=== PATIENT | female | born 1990 ===

== ENCOUNTER → 2019-11-27 14:39 | Outpatient (BNVA) | payer MEDICAID, SELFPAY | PROVIDERS: PCP Family Medicine; Visit Provider Obstetrics & Gynecology | DX: Z01.89 Encounter for other specified special examinations (principal) | CPT/HCPCS: 84315 ==

== ENCOUNTER → 2019-12-11 14:43 | Outpatient (BNVA) | payer MEDICAID, SELFPAY | PROVIDERS: PCP Family Medicine; Visit Provider Obstetrics & Gynecology | DX: Z34.83 Encounter for supervision of other normal pregnancy, third trimester (principal) | CPT/HCPCS: 84315; 85027 ==

== ENCOUNTER 2019-12-20 14:49 | Outpatient (CLI) | payer MEDICAID, SELFPAY ==
[2019-12-20] VITALS (8 sets, daily range): BP systolic 97–104; BP diastolic 60–68; PULSE 79–91; BMI 29.7
[2019-12-20 15:37] LABS: Actim Prom Negative
== END 2019-12-20 16:52 | disposition home or self-care (01) ==
LOC: OPOB 14:55 → OBGYN 16:51 → OPOB 12-21 13:30
PROVIDERS: Absent Provider Obstetrics & Gynecology; PCP Family Medicine; Visit Provider Obstetrics & Gynecology
DX: O26.899 Other specified pregnancy related conditions, unspecified trimester (principal); Z3A.00 Weeks of gestation of pregnancy not specified; R10.9 Unspecified abdominal pain
CPT/HCPCS: 59025; 83986; 84112; 99211

== ENCOUNTER → 2019-12-25 14:55 | Outpatient (BNVA) | payer MEDICAID, SELFPAY | PROVIDERS: PCP Family Medicine; Visit Provider Obstetrics & Gynecology | DX: Z34.90 Encounter for supervision of normal pregnancy, unspecified, unspecified trimester (principal) | CPT/HCPCS: 84315; 87081 ==

== ENCOUNTER → 2020-01-01 14:54 | Outpatient (BNVA) | payer MEDICAID, SELFPAY | PROVIDERS: PCP Family Medicine; Visit Provider Obstetrics & Gynecology | DX: Z01.89 Encounter for other specified special examinations (principal) | CPT/HCPCS: 84315 ==

== ENCOUNTER 2020-01-05 16:43 | Outpatient (CLI) | payer MEDICAID, SELFPAY ==
[2020-01-05 17:18] VITALS: BP 112/62; PULSE 92; RESP 18; TEMP 36.7
[2020-01-05 17:49] VITALS: BMI 29.3
[2020-01-05 18:24] VITALS: BP 109/63; PULSE 84
[2020-01-05 18:30] VITALS: BP 109/63; PULSE 82; RESP 16; TEMP 36.7
== END 2020-01-05 18:30 | disposition home or self-care (01) ==
LOC: OPOB 16:57 → OBGYN 17:28 → OPOB 01-06 14:45
PROVIDERS: PCP Family Medicine; Visit Provider Obstetrics & Gynecology Female Pelvic Medicine and Reconstructive Surgery
DX: O26.899 Other specified pregnancy related conditions, unspecified trimester (principal); Z3A.00 Weeks of gestation of pregnancy not specified; R10.9 Unspecified abdominal pain
CPT/HCPCS: 59025; 99211

== ENCOUNTER 2020-01-07 03:42 | Outpatient (CLI) | payer MEDICAID, SELFPAY ==
[2020-01-07] VITALS (19 sets, daily range): BP systolic 0–120; BP diastolic 0–70; PULSE 63–91; RESP 17–18; TEMP 36.6; BMI 29.8
== END 2020-01-07 08:03 | disposition home or self-care (01) ==
LOC: OPOB 03:47 → OBGYN 07:51 → OPOB 10:33
PROVIDERS: PCP Family Medicine; Visit Provider Obstetrics & Gynecology
DX: O26.899 Other specified pregnancy related conditions, unspecified trimester (principal); Z3A.00 Weeks of gestation of pregnancy not specified; R10.9 Unspecified abdominal pain
CPT/HCPCS: 99211; A9270

== ENCOUNTER → 2020-01-08 14:41 | Outpatient (BNVA) | payer SELFPAY | PROVIDERS: PCP Family Medicine; Visit Provider Obstetrics & Gynecology | DX: Z01.89 Encounter for other specified special examinations (principal) | CPT/HCPCS: 84315 ==

== ENCOUNTER 2020-01-14 01:53 | Inpatient (IN) | payer MEDICAID, SELFPAY ==
[2020-01-13 23:50] VITALS: RESP 18; TEMP 36.6
[2020-01-14] VITALS (100 sets, daily range): BP systolic 0–132; BP diastolic 0–77; PULSE 55–98; RESP 16–18; TEMP 36.5–37.2; O2SAT 97–100; BMI 30.5
[2020-01-14 01:03] LABS: Nitrazine Paper, PH Negative
[2020-01-14 01:52] LABS: Basophils % 0.2 %; Eosinophils # 0.1 10^3/uL (0.0-0.8); Eosinophils % 1.1 %; Hematocrit 32.8 % (37.0-47.0); Hemoglobin 10.9 g/dL (11.5-15.3); Lymphocytes # 2.3 10^3/uL (0.8-4.8); Mean Corpuscular HGB Conc 33.2 g/dL (30.0-36.0); Mean Corpuscular Hemoglobin 29.1 pg (28.0-34.0); Mean Corpuscular Volume 87.7 fL (81-99); Mean Platelet Volume 10.5 fL (7.4-10.4); Monocytes # 0.9 10^3/uL (0.2-0.9); Monocytes % 8.9 %; Neutrophils # 6.6 10^3/uL (1.8-7.7); Neutrophils % 66.3 %; Nucleated Red Blood Cells % 0 %; Platelet Count 283 10^3/cmm (130-400); Red Blood Count 3.74 10^6/uL (4.1-5.3); Red Cell Distribution Width 13.5 % (12.1-15.1)
[2020-01-14 02:10] LABS: Amphetamines Screen Urine Negative (Negative); Barbiturates Screen Urine Negative (Negative); Benzodiazepines Screen Urine Negative (Negative); Cocaine Screen Urine Negative (Negative); Opiate Screen Urine Negative (Negative); PCP Screen Urine Negative (Negative); THC Screen Urine Negative (Negative)
[2020-01-14] MEDS: dextrose 5%-lactated ringers 1,000 ML 125 ML IV ×2 (02:26→11:18)
[2020-01-14] MEDS: lactated ringers 1,000 ML 999 ML IV (03:50)
--- NOTE | 2020-01-14 05:19 | ANES.PREANE2 ---
Pre-Anesthetic Assessment Pre-Anesthetic Assessment: Height/Weight: Height 1.63 m Weight 80.739 kg Temp Pulse Resp BP Pulse Ox 97.7 F 73 18 107/64 98 01/14/20 03:52 01/14/20 05:17 01/14/20 03:52 01/14/20 05:17 01/14/20 05:17 Preop Diagnosis: labor pain Proposed Procedure: labor epidural Was Beta Autumn taken within 24 hours: N/A Social: Social History: Tobacco and No alcohol Exam: Pre-Anes Outpt Exam: alert, oriented x 3 and clear to auscultation bilaterally Airway: Submandibular: WNL Cervical ROM: WNL MP: 1 Pulmonary: Pulmonary: None reported Comments: bronchitis CV/HEM: CV/HEM: None reported : : None reported Hepatic: Hepatic: None reported GI: GI: GERD Metabolic: Metabolic: None reported Musc/skel: Musc/skel: None reported Neuropsych: Neuropsych: None reported Anesthetic Plan: ASA status: 2 Anesthesia: Anesthesia Evaluation and Eval. for regional block Risk of > 500 ml blood loss (7ml/kg in children): No Meds/Allergies Current Medications: Current Medications Generic Name Dose Route Start Last Admin Trade Name Freq PRN Reason Stop Dose Admin Dextrose/Lactated Ringer's 1,000 mls @ 125 m ls/hr 01/14/20 01:45 01/14/20 05:00 Dextrose 5%-Lact ated Ringers IV 125 mls/hr .Q8H PETER Infusion Lactated Ringer's 1,000 mls @ 999 m ls/hr 01/14/20 03:43 01/14/20 04:59 Lactated Ringers IV Infused .Q1H1M PRN Infusion ANESTHESIA Ropivacaine 200 mg in 100 mls @ 6 mls/hr 01/14/20 03:45 01/14/20 05:11 Naropin Premix EPIDURAL 13 mls/hr .[id number] PETER Administration PFSH Anesthesia Female Reproductive History: : 3 Data Anesthesia CBC & Chem 7: 01/14/20 01:20 Other Labs: Laboratory Results - last 48 hr 01/14/20 01/14/20 00:20 01:20 WBC 10.0 RBC 3.74 L Hgb 10.9 L Hct 32.8 L MCV 87.7 MCH 29.1 MCHC 33.2 RDW 13.5 Plt Count 283 MPV 10.5 H Neut % (Auto) 66.3 Lymph % (Auto) 23.0 Benzie % (Auto) 8.9 Eos % (Auto) 1.1 Baso % (Auto) 0.2 Neut # (Auto) 6.6 Lymph # (Auto) 2.3 Benzie # (Auto) 0.9 Eos # (Auto) 0.1 Baso # (Auto) 0.0 Nucleated RBC % (auto) 0 Nucleated RBCs # 0.0 Urine Opiates Screen Negative Ur Barbiturates Screen Negative Ur Phencyclidine Scrn Negative Ur Amphetamines Screen Negative U Benzodiazepines Scrn Negative Urine Cocaine Screen Negative U Marijuana (THC) Screen Negative Cardiac Studies: No Data to Display
--- NOTE | 2020-01-14 05:22 | ANES.PROC ---
Anesthesia Procedures Procedure/Date: 01/14/20 Epidural: Time Out Performed: Yes Consents Signed: Procedure Consent Consent: requested by attending/covering physician, from patient, risks and benefits reviewed and patient agrees to proceed Lumbar Level: L3-L4 Epidural position: sitting Epidural procedure: sterile prep of area, 1% lidocaine to numb the area (3 cc ), 18 g needle (L3-L4), negative for paresthesia passed, neg for paresthesia, test dose given (3 cc), 0.2% Ropivacaine bolus ml (8 cc), placed PCEA, no systemic response, sterile dressing applied, L.U.D. no apparent complications and 0.2% Ropiavacaine @ mls/hr (13 mls/hr 5 cc Q 10 min X 3) Additional Comments: MANDIE at 9 cm, catheter threaded to 14 cm at skin. VSS see OBIX
[2020-01-14] MEDS: oxytocin 30 UNIT/500 ML BAG IV (11:19)
[2020-01-14] MEDS: ondansetron 2 mg/ML SDV 2 mL 4 MG IVP (13:05)
--- NOTE | 2020-01-14 13:44 | PM.DELIVERY ---
 Delivery Note: Date of delivery: January 14, 2020 Pre-delivery diagnoses: 1. Term at 39-5/7 weeks gestaton, 2. History of genital herpes, 3. Tobacco use during Post-delivery diagnoses: 1. Term at 39-5/7 weeks gestaton, 2. History of genital herpes, 3. Tobacco use during , 4. Viable female Procedure: Spontaneous vaginal delivery Op report anesthesia: Epidural Delivering Physician: Dr. Dwight Rose Estimated blood loss (mL): 100 Pre-Delivery Course: Patient is a 29-year-old white female 3, para 2-0-0-2 with an LMP of 04/19/2019 (guess) and an EDC of 01/16/2020 based on a 21-week ultrasound, which placed her at 39-4/7 weeks gestation. She presented to labor and delivery at 23:30 on 01/13/2020 with a complaint of contractions. She is stated that she had been having contractions about every 2 minutes since about 8 PM. On arrival she was noted to be 50% effaced and 2 cm dilated at a -3 station and was beulah about every 3 minutes. She was monitored over the next couple hours, but made no significant change. However during that time she would have episodes of recurrent late decelerations which would resolve. During that time the baby would still be reactive. Due to the late decelerations, decision was made to keep her with plan to promote delivery. However, she started progressing slowly on her own and as a result had epidural placed during the night. By 06:50 she was 5 cm dilated and 60% effaced. By around 11:00 she was still 5 cm dilated and decision was made to start Pitocin augmentation. At 12:10, she had spontaneous rupture of membranes and was found to be an anterior lip. By 12:30, she was completely dilated. During the labor course, the baby continued to have episodes of late decelerations as well as recurrent variable decelerations. However, reactivity was maintained during the process. Delivery: Patient started pushing at 12: 45. She was noted with pushing she would bring the baby down but in between pushes the baby would go back up to about a 0 station. She eventually brought the baby down to a +3 station and at this point it appeared that the baby was most likely in an OP presentation. Manual rotation was performed and the baby had been rotated to left occiput transverse when she had her next contraction and with pushing at that point the baby finished rotating around to occiput anterior and rapidly delivered. Baby delivered at 13:11 as a spontaneous vaginal delivery of an occiput anterior female infant over an intact perineum under epidural anesthesia. Following delivery of the 's head one loop of nuchal cord was noted. However, the baby was rapidly delivering and delivered through the loop of cord. The right shoulder was anterior. The baby was placed on the mother's abdomen where it had started crying. Nose and mouth were suctioned with bulb suction. Cord was clamped and was then cut by a family member. Baby was left in the care of the waiting nurses. Cord blood was obtained. Pitocin bolus was started. Placenta delivered intact by simple expression at 13:15. The cervix and vagina were palpated and noted to be intact. The labia were inspected and noted to be intact except for superficial abrasions which required no repair. FINDINGS 1. Viable female infant weighing 7 lbs 4 oz (3300 g) with a length of 20 inches and Apgars of 8 at 1 minute and 9 at 5 minutes. 2. Normal-appearing placenta with central cord insertion. 3. Three-vessel cord with one loop of nuchal cord noted. Post-Delivery Status: Mother and infant were left to recover in satisfactory condition. Coding Level of Care Code Acute Patient Assistant for Manny Kerns
[2020-01-14] MEDS: lanolin oint 7 gm 1 APPLIC TOPICAL (15:49)
[2020-01-14] MEDS: TRAMadol 50 mg Tablet PO (16:17)
[2020-01-14] MEDS: acyclovir 400 mg Tablet PO (19:35)
[2020-01-14] MEDS: docusate sodium 100 mg Capsule PO (19:35)
[2020-01-15 03:53] VITALS: BP 109/74; PULSE 74; RESP 16; TEMP 36.8; O2SAT 98
[2020-01-15] MEDS: TRAMadol 50 mg Tablet PO (04:44)
[2020-01-15 05:56] LABS: Hematocrit 33.8 % (37.0-47.0); Hemoglobin 11.1 g/dL (11.5-15.3); Mean Corpuscular HGB Conc 32.8 g/dL (30.0-36.0); Mean Corpuscular Hemoglobin 30.1 pg (28.0-34.0); Mean Corpuscular Volume 91.6 fL (81-99); Mean Platelet Volume 10.3 fL (7.4-10.4); Platelet Count 248 10^3/cmm (130-400); Red Blood Count 3.69 10^6/uL (4.1-5.3); Red Cell Distribution Width 13.8 % (12.1-15.1); White Blood Count 13.5 10^3/uL (4.0-10.0)
[2020-01-15 07:18] VITALS: BP 100/65; PULSE 78; RESP 15
--- NOTE | 2020-01-15 07:36 | P.DS_ITS ---
Discharge Providers Date of Admission: 01/14/20 01:53 Date of Discharge: January 15, 2020 Attending Provider at Admission: Dwight Rose MD Attending Provider at Discharge: Dwight Rose MD Primary Care Provider: Serjio Wallace DO Diagnoses at Discharge Discharge Diagnosis (1) Term delivered: Status: Acute (2) Genital herpes during , delivered, current hospitalization: Status: Acute Reason for Visit Reason for Visit: Reason For Visit: labor Hospital Course Hospital Course: Patient is a 29-year-old white female 3, para 2-0-0-2 with an LMP of 04/19/2019 (guess) and an EDC of 01/16/2020 based on a 21-week ultrasound, which placed her at 39-4/7 weeks gestation at the time of admission. She presented to labor and delivery at 2330 on 01/13/2020 with complaint of contractions. She was beulah about every 2 minutes and these had started about 8 PM. On arrival she was 2 cm dilated, 50% effaced, and -3 station and was beulah about every 3 minutes. She initially made no significant cervical foreign exchange trader the first couple hours, but had runs of repetitive late decelerations which would then go away. She had remained having a reactive tracing however during these times. Since she was 39 weeks with the late decelerations, decision was made to go ahead and keep her and proceed towards delivery. During the night she progressed slowly on her own. She became more uncomfortable and had epidural placed. By 11:00 in the morning she was 5 cm dilated and decision was made to start her on Pitocin augmentation. However, she rapidly progressed after that and by 12:10 she was an anterior lip with spontaneous rupture membranes at that time with clear fluid present. She progressed to complete dilation by 12:30. She started pushing at 1245 and delivered at 1311 as a spontaneous vaginal delivery of an occiput anterior female over an intact perineum under epidural anesthesia. The baby weighed 7 pounds 4 ounces (3300 g) with a length of 20 inches and Apgars of 8 at 1 minute 9 at 5 minutes. She had superficial abrasions which required no repair. Mother and did well following delivery. DAY 1 Patient was without complaints. She reported tolerating a regular diet without nausea or vomiting. She denied any lightheadedness or dizziness with ambulation. She reported her pain was well controlled. She denied any shortness of breath or chest pains. She denied problems with urination. She stated her bleeding had slowed. She is breast-feeding. She would like to be released today. PHYSICAL EXAM See below. PLAN Discharged home. Discharge instructions discussed with patient. Patient to follow-up in the office in 6 weeks for exam. Patient has decided to have an interval sterilization which will be scheduled through our office. Physical Exam Const: COMMON NORMALS: no apparent distress, average body habitus, alert and well nourished GENERAL APPEARANCE: well developed ORIENTATION/CONSCIO USNESS: Yes oriented to person, Yes oriented to place and Yes oriented to time Resp: COMMON NORMALS: normal respiratory effort and clear to auscultation bilaterally AUSCULTATION: clear to auscultation bilaterally Cardio: COMMON NORMALS: regular rate, regular rhythm, no gallops, no murmurs and no rub RATE: regular rate RHYTHM: regular rhythm GI: COMMON NORMALS: soft to palpation, non-tender, no hepatosplenomegaly and no masses (Except for nontender firm uterus approximately 2 fingerbreadths below the umbilicus.) AUSCULTATION: Yes normoactive bowel sounds PALPATION: Yes soft, Yes no hepatosplenomegaly and No hernia : EXTERNAL FEMALE EXAM: No hernia Neuro: SENSORIUM/ORIENTATION: Yes alert, Yes oriented to person, Yes oriented to place and Yes oriented to time Psych: COMMON NORMALS: affect normal MOOD & AFFECT: Yes euthymic mood Urinary Catheter Management^: Torres: Cath Placed During This Visit: yes Urethral Indwelling: No Reason for Continuing Indwelling Catheter: Other Urinary Catheter Date of Insertion: 01/14/20 Urinary Catheter Time of Insertion: 05:35 Discharge Data Data Completed and Pending: Labs from last 24 hours 01/15/20 04:59 WBC 13.5 H RBC 3.69 L Hgb 11.1 L Hct 33.8 L MCV 91.6 MCH 30.1 MCHC 32.8 RDW 13.8 Plt Count 248 MPV 10.3 Vitals: Last Vital Signs Temp 98.2 F 01/15/20 03:53 Pulse 74 01/15/20 03:53 Resp 16 01/15/20 03:53 BP 109/74 01/15/20 03:53 Pulse Ox 98 01/15/20 03:53 Discharge Plan Discharge Patient Disposition: Home, Self-Care Condition: Stable Prescriptions: New tramadol 50 mg Tablet 50 - 100 mg PO Q4H PRN (Reason: Moderate To Severe Pain) Qty: 10 RF: 0 ibuprofen 800 mg Tablet 800 mg PO TID PRN (Reason: pain) Qty: 40 RF: 0 Continued Vitamin 27 mg iron- 800 mcg Tablet 1 tab PO DAILY RF: 0 acyclovir 400 mg Tablet 400 mg PO BID RF: 0 Discharge Orders: Discharge Order (Routine); Ordered 01/15/20 Ordered By: Dwight Rose Referrals: Dwight Rose MD [Physician] - 6 Weeks ( exam) Discharge Diet: Regular Discharge Activity: Resume usual activity Patient Instructions: OB Vaginal Deliveries - [facility] Discharge Attestations Time Spent in Discharge Care*: less than 30 min Quality Metrics Clinical Quality Measures During this hospital stay, did patient experience: None Coding Level of Care Code Acute Stock Selector for g Fwd Exam Detailed Diagnoses Term delivered O80 Genital herpes during , delivered, current hospitalization O98.32; A60.09
[2020-01-15] MEDS: docusate sodium 100 mg Capsule PO (09:26)
[2020-01-15] MEDS: prenatal vitamin Capsule 1 CAP PO (09:27)
[2020-01-15] MEDS: acyclovir 400 mg Tablet PO (09:27)
--- NOTE | 2020-01-15 10:29 | ANE.PACU2 ---
 Inpatient post-anesthesia follow up: Airway intact: Yes Vital signs: Temperature 98.2 F Pulse Rate 78 Respiratory Rate 15 Blood Pressure 100/65 Pulse Oximetry 98 Oxygen Delivery Me thod Room Air Oxygen Flow Rate Fraction of Inspir ed Oxygen Hydration adequate: No Pain level: 2 Mental status: Baseline Additional Comments: No, headaches, lower extremity weakness, or difficult urinating. No signs of infection
[2020-01-15 10:43] VITALS: BP 107/66; PULSE 85; RESP 16; TEMP 36.7
[2020-01-15 16:39] VITALS: BP 97/63; PULSE 57; RESP 16; TEMP 36.4
== END 2020-01-15 17:21 | disposition home or self-care (01) | DRG 806 ==
LOC: OBGYN 09:13 → OPOB 01-16 07:33
PROVIDERS: Admitting Provider Obstetrics & Gynecology; PCP Family Medicine; Visit Provider Obstetrics & Gynecology
DX: O76 Abnormality in fetal heart rate and rhythm complicating labor and delivery (principal); O98.32 Other infections with a predominantly sexual mode of transmission complicating childbirth; Z37.0 Single live birth; Z3A.39 39 weeks gestation of pregnancy; A60.00 Herpesviral infection of urogenital system, unspecified; O99.334 Smoking (tobacco) complicating childbirth; F17.210 Nicotine dependence, cigarettes, uncomplicated; O69.81X0 Labor and delivery complicated by cord around neck, without compression, not applicable or unspecified
CPT/HCPCS: 12345; 36415; 51702; 59409; 80307; 83986; 85025; 85027; 96374; 96375; 98960; 99211; J2405; J2795; J3010; J8499

== ENCOUNTER 2020-02-16 08:00 | Day surgery (SDC) | payer MEDICAID, SELFPAY ==
--- NOTE | 2020-02-16 11:13 | ANES.PREANE2 ---
Pre-Anesthetic Assessment Pre-Anesthetic Assessment: Height/Weight: Height 1.63 m Weight 71.668 kg Preop Diagnosis: Undesired fertility Proposed Procedure: Operation Date: 02/24/20 07:00 Proposed Procedures p Zaina Bucio,Removal of Tubes Sterilization 11986 Z30.2(Not Applicable) - Dwight Rose MD Familial anesthetic complications: None Social: Social History: Tobacco Packs per day: 0.5 ppd Exam: Pre-Anes Outpt Exam: alert, oriented x 3, clear to auscultation bilaterally and regular rate & rhythm Airway: Cervical ROM: WNL MP: 1 Dentition: Chipped Pulmonary: Comments: bronchitis occassionally CV/HEM: CV/HEM: None reported : : None reported Hepatic: Hepatic: None reported GI: GI: None reported Metabolic: Metabolic: None reported Musc/skel: Musc/skel: Scoliosis Comments: herniated disc, sciatica (R) Neuropsych: Neuropsych: Neuropathy and None reported Anesthetic Plan: ASA status: 2 Anesthesia: General Risk of > 500 ml blood loss (7ml/kg in children): No PFSH Anesthesia PFSH: Family History (Updated 02/16/20 @ 08:41 by Jeir Douglass LPN) Mother Hypertension Hypercholesteremia Thyroid disease Grandmother Diabetes maternal Thyroid disease maternal Ovarian cancer maternal Family/Other Diabetes maternal aunt Ovarian cancer maternal Social History (Updated 02/16/20 @ 09:19 by Jeri Douglass LPN) Smoking and tobacco status: current every day smoker cigarettes Packs smoked per day: 0.5 Years cigarettes smoked: 11 Alcohol intake: never Substance/Drug Use: never Female Reproductive History: Date of last menstrual period: 02/12/20 Data Anesthesia Cardiac Studies: No Data to Display
== END 2020-02-16 09:00 | disposition home or self-care (01) ==
LOC: OPS 07-13 13:15
PROVIDERS: Visit Provider Obstetrics & Gynecology
DX: Z01.818 Encounter for other preprocedural examination (principal); F17.210 Nicotine dependence, cigarettes, uncomplicated
CPT/HCPCS: 81025

== ENCOUNTER 2020-04-25 11:10 | Emergency (ER) | payer MEDICAID, SELFPAY ==
[2020-04-25 11:13] VITALS: BP 122/72; PULSE 97; RESP 18; TEMP 36.6; O2SAT 100; BMI 24.0
--- NOTE | 2020-04-25 11:22 | W.ED.SKABFB ---
HPI - Skin/Abscess/Foreign Bdy General: Chief complaint: Skin/Abscess/Foreign Body Stated complaint: sunburn Time Seen by Provider: 04/25/20 11:13 History of Present Illness: HPI narrative: Patient is a 49-year-old female who comes to the ED with a sunburn. Patient states that yesterday she [place] on the river and applied sunscreen multiple times but still got sunburn. Sunburn on right and left upper and lower extremities along with the shoulders. Patient states the right and left thighs and right and left shoulders are the most painful areas of her sunburn. Patient has been applying aloe and took an oatmeal bath this morning. Associated symptoms: Deny chills, fever(s), nausea or vomiting Review of Systems Const: Denies: fever(s), chills or fatigue Eyes: Denies: change in vision or eye discomfort ENMT: Denies: throat pain, odynophagia, nasal discharge or nasal congestion Card: Denies: chest pain, palpitations, edema, swelling of feet/ankles, dyspnea on exertion or orthopnea Resp: Denies: dyspnea, productive cough or non-productive cough GI: Denies: abdominal pain, nausea, vomiting, diarrhea, constipation or hematochezia : Denies: flank pain, dysuria or hematuria Musc: Denies: neck pain, back pain or extremity swelling Skin/Breast: Reports: erythema (sunburn on R and L upper and lower extremities and shoulders); Denies: rash or new lesions Neuro: Denies: headache(s), numbness in extremities or weakness in extremities PFS ED PFSH: Medical History Blood type O+ Genital herpes (~2014) Diagnosed. Has been intermittently on daily suppression. History of depression Had depression following first . Surgical History No pertinent past surgical history Family History Mother Hypertension Hypercholesteremia Thyroid disease Grandmother Diabetes maternal Thyroid disease maternal Ovarian cancer maternal Family/Other Diabetes maternal aunt Ovarian cancer maternal Social History Smoking and tobacco status: current every day smoker cigarettes Packs smoked per day: 0.5 Years cigarettes smoked: 11 Alcohol intake: never Female Reproductive History: Date of last menstrual period: 02/12/20 Physical Exam Const: COMMON NORMALS: patient oriented x3 HENMT: COMMON NORMALS: normocephalic HEAD & SCALP: normocephalic MOUTH: Normal oral and palatal mucosa present THROAT: posterior oropharynx normal and uvula midline Neck/C-Spine: COMMON NORMALS: supple GENERAL: Yes normal visual inspection Resp: COMMON NORMALS: normal respiratory effort, No retractions, No use of accessory muscles and clear to auscultation bilaterally AUSCULTATION: clear to auscultation bilaterally Cardio: COMMON NORMALS: regular rate, regular rhythm, S1 normal heart sound present, S2 normal heart sound present, No gallops present (Cardio), No clicks present (Cardio), No murmurs present (Cardio) and Peripheral pulses 2+ throughout RATE: regular rate RHYTHM: regular rhythm HEART SOUNDS: S1 normal heart sound present and S2 normal heart sound present PERIPHERAL PULSES: Peripheral pulses 2+ throughout GI: COMMON NORMALS: Normal to inspection, nondistended, normoactive bowel sounds present, Soft to palpation, non-tender and no masses PALPATION: Yes Soft to palpation : COMMON NORMALS: Yes no CVA tenderness BLADDER/KIDNEY EXAM: Yes no CVA tenderness Back/Pelvis: COMMON NORMALS: no CVA tenderness Extremity: GENERAL: Yes normal exam except as noted (Sunburn on both right and left upper and lower extremities.) Neuro: COMMON NORMALS: patient oriented x3 and moves all extremities Skin: NARRATIVE SKIN EXAM: Patient has sunburn on upper and lower right and left extremities along with the shoulders. There is no blistering seen in the skin was red and warm. Course Vital Signs: Vital signs: Vital Signs Temperature 97.8 F 04/25/20 11:13 Pulse Rate 97 04/25/20 11:13 Respiratory Rate 18 04/25/20 11:13 Blood Pressure 122/72 04/25/20 11:13 Pulse Oximetry 100 04/25/20 11:13 MDM - Skin/Abscess/Foreign Bdy MDM Narrative: Medical decision making narrative: Patient is a 29-year-old female comes to the ED with a sunburn. Physical exam showed no blistering. Skin was red on right and left upper and lower extremities along with both shoulders. Patient was discharged and told to apply aloe vera on gerard and to stay out of the sun for the next couple days. She was told to follow-up with her PCP in 7 days for reevaluation. Told her to apply sunscreen whenever she is going to be outside in the sun. Patient understood and agreed with plan. Discharge Plan Discharge Patient Disposition: Home, Self-Care Clinical Impression: Sunburn Condition: Stable Prescriptions: No Action medroxyprogesterone [Depo-Provera] 150 mg/mL suspension 150 mg IM .every 3 months Qty: 1 RF: 0 Tylenol 325 mg Tablet 325 mg PO QID PRN (Reason: Headache) RF: 0 Discharge Orders: Discharge Order (Routine); Ordered 04/25/20 Ordered By: Oneal Mckinley Discharge Diet: Regular Discharge Activity: Increase activity as tolerated Patient Instructions: Sunburn - Adult Activity Restrictions/Additional Instructions: Stay out of the sun and rest today. Drink a lot of water. Take Tylenol or ibuprofen for pain. Apply aloe vera on gerard to help with symptoms. Follow-up with your PCP in 7 to 10 days for reevaluation. Stand Alone Forms: Work/School Release Discharge Date/Time: 04/25/20 11:47 Coding Level of Care Code ED Resourcing Advisor for Tavaresg Fwd Exam Comprehensive
== END 2020-04-25 11:47 | disposition home or self-care (01) ==
PROVIDERS: Emergency Provider Physician Assistant
DX: L55.9 Sunburn, unspecified (principal); F17.210 Nicotine dependence, cigarettes, uncomplicated
CPT/HCPCS: 12345; 99281